=== PATIENT | male | born 1955 | race Hispanic/Latino ===

== ENCOUNTER 2017-05-11 13:05 | Emergency (ER) | payer OTHER ==
[2017-05-11 13:05] VITALS: BMI 35.4
--- NOTE | 2017-05-11 13:57 | ED PDOC ---
Arrival/HPI - General Chief Complaint: Male Genitourinary Time Seen by Provider: 05/11/17 13:38 Historian: Patient - History of Present Illness Narrative History of Present Illness (Text): 05/11/17 13:54 A 61 year old male presents to the emergency department with 1 day duration left flank pain radiating to the left groin. The patient describes the pain as pressure and notes that his urine has been darker than usual. He denies any relieving or exacerbating factors, midline tenderness, fevers, chills, headache , dizziness, chest pain, shortness of breath, dyspnea on exertion, cough, nausea , vomiting, diarrhea, neck pain, urinary/bowel changes, or any other complaint. Time/Duration: Other (1 Day) Symptom Onset: Sudden Symptom Course: Unchanged Activities at Onset: Rest, Light Context: Home Past Medical History - Provider Review Nursing Documentation Reviewed: Yes - Infectious Disease Hx of Infectious Diseases: None - Cardiac Hx Cardiac Disorders: Yes Hx MD: Yes Hx Hypertension: Yes - Pulmonary Hx Respiratory Disorders: No - Neurological Hx Neurological Disorder: No Hx Paralysis: No - HEENT Hx HEENT Disorder: Yes Other/Comment: glasses - Renal Hx Renal Disorder: Yes Hx Kidney Stones: Yes - Endocrine/Metabolic Hx Endocrine Disorders: Yes Hx Diabetes Mellitus Type 2: Yes - Hematological/Oncological Hx Blood Transfusions: No Hx Blood Transfusion Reaction: No - Integumentary Hx Dermatological Disorder: No - Musculoskeletal/Rheumatological Hx Musculoskeletal Disorders: Yes Hx Arthritis: Yes - Gastrointestinal Hx Gastrointestinal Disorders: No - Genitourinary/Gynecological Hx Genitourinary Disorders: No - Psychiatric Hx Psychophysiologic Disorder: No Hx Emotional Abuse: No Hx Physical Abuse: No Hx Substance Use: No - Surgical History Hx Cardiac Catheterization: Yes (x1 stent) Hx Coronary Stent: Yes Hx Thyroidectomy: Yes - Anesthesia Hx Anesthesia: Yes Hx Anesthesia Reactions: No Hx Malignant Hyperthermia: No - Suicidal Assessment Feels Threatened In Home Enviroment: No Family/Social History - Physician Review Nursing Documentation Reviewed: Yes Family/Social History: No Known Family HX Smoking Status: Never Smoked Hx Alcohol Use: Yes (OCCASSIONAL) Frequency of alcohol use: Socially Hx Substance Use: No Allergies/Home Meds Allergies/Adverse Reactions: Allergies Penicillins Allergy (Mild, Verified 05/11/17 13:09) RASH Home Medications: Home Meds Medication Instructions Recorded Confirmed Aspirin [Aspir 81] 81 mg PO DAILY 01/24/12 05/11/17 Clopidogrel [Plavix] 75 mg PO DAILY 01/24/12 05/11/17 Fenofibrate [Tricor] 145 mg PO DAILY 01/24/12 05/11/17 Metoprolol Tartrate [Lopressor] 12.5 mg PO BID 01/24/12 05/11/17 Rosuvastatin Calcium [Crestor] 20 mg PO DAILY 01/24/12 05/11/17 Cholecalciferol (Vitamin D3) 2,000 unit PO DAILY 05/09/17 05/11/17 [Vitamin D3] Glyburide/Metformin HCl 1 tab PO BID 05/09/17 05/11/17 [Glyburide-Metformin 2.5-500 mg] Olmesartan Medoxomil [Benicar] 20 mg PO DAILY 05/09/17 05/11/17 MetFORMIN [glucoPHAGE] 500 mg PO TID 05/11/17 05/11/17 Review of Systems - Physician Review All systems were reviewed & negative as marked: Yes Physical Exam - Physical Exam Narrative Physical Exam (Text): - Review of Systems Constitutional: Normal. absent: Fatigue, Weight Change, Fevers Eyes: Normal ENT: denies sore throat, denies tristhmus Respiratory: Normal. absent: SOB, Cough, Sputum Cardiovascular: absent: Chest Pain, Palpitations, Syncope Gastrointestinal: (+) LLQ Abdominal Pain. absent: Diarrhea, Nausea, Vomiting Genitourinary: Normal. absent: Dysuria, Frequency, Hematuria, vaginal bleeding Musculoskeletal: (+) Left flank pain. absent: Arthralgias, Neck Pain Skin: no rashes, no erythema Neurological: absent: Focal Weakness Endocrine: Normal Hemo/Lymphatic: Normal Psychiatric: No suicidal or homicidal ideations Physical exam Patient appears age appropriate in no distress, speaking full sentences without difficulty - Systems Exam Head: Present: Atraumatic, Normocephalic Pupils: Present: PERRL Extroacular Muscles: Present: EOMI Conjunctiva: Present: Normal Mouth: Present: Moist Mucous Membranes Neck: Present: Normal Range of Motion. No: MIDLINE TENDERNESS, Paraspinal Tenderness Respiratory/Chest: Present: Clear to Auscultation, Good Air Exchange. No: Respiratory Distress, Accessory Muscle Use, Tachypneic Cardiovascular: Present: Regular Rate and Rhythm, Normal S1, S2, Peripheal Pulses Present. No: Murmurs Abdomen: Present: Left lower quadrant tenderness. Normal Bowel Sounds. No: Distention, Peritoneal Signs, Rebound, Guarding Back: Present: Left flank tenderness. No: Midline Tenderness, Paraspinal Tenderness Upper Extremity: Present: Normal Inspection. No: Cyanosis, Edema Lower Extremity: Present: Normal Inspection. No: Edema Neurological: Present: GCS=15, Speech Normal, cranial nerves II through XII fully intact with no cerebellar abnormality, neurosensory fully intact. No focal neurological deficits. Skin: Present: Warm, Dry, Normal Color. No: Rashes Lymphatic: Present: OX3, NI, NC Psychiatric: Present: Alert, Oriented x 3, Normal Insight, Normal Concentration Vital Signs Reviewed: Yes Vital Signs Temp Pulse Resp BP Pulse Ox 05/11/17 15:20 97.8 F 70 17 172/73 H 98 05/11/17 13:14 97.8 F 55 L 18 208/81 H 100 Temperature: Afebrile Blood Pressure: Hypertensive Pulse: Tachycardic Respiratory Rate: Normal Appearance: Positive for: Well-Appearing, Non-Toxic Pain Distress: None Mental Status: Positive for: Alert and Oriented X 3 Medical Decision Making ED Course and Treatment: 05/11/17 14:00 Impression: A 61 year old male presents with 1 day duration left flank pain radiating to his left groin. On exam, LLQ and Left flank tenderness. Differential Diagnosis included but are not limited to: Renal Colic vs. Diverticular Disease vs. Musculoskeletal Pain vs. Non-Specific Abdominal Pain. Plan: -- Abdomen/Pelvis CT -- Urinalysis -- Labs -- Flomax and Toradol -- Reassess and disposition Progress Notes: 05/11/17 14:03: No fluids were administered to patient due to elevated blood pressure. 05/11/17 15:28 BP lower, HR increased will order fluids pt states he feels much better 05/11/17 16:11 CT IMPRESSION: 1. Moderate left obstructive uropathy resulting from a 5 mm stone in the left proximal ureter. 2. Small nonobstructing stones in the left kidney. Punctate nonobstructing stone in the upper pole of the right kidney. 3. Mild enlargement of the prostate gland. Please correlate with PSA levels. 4. Fatty infiltration of the liver. 5. Constipation. No evidence of bowel obstruction. patient is in no distress and states his pain fully resolved no nausea or vomiting denies any complaints pt states he feels comfortable being dc'd at this time dw Dr. Carrie Cerda in detail, agrees with dc home with outpatient f/u tomorrow pt instructed to f/u with Dr. Cerda tmr and he was given Dr. Cerda's cell phone number to call for f/u pt also instructed to return to the ER right away for new or worsening symptoms or if he cannot f/u as instructed Pt states he understands to return to the ER right away for new or worsening symptoms or for inability to f/u with PMD or specialist as instructed. Patient states that he fully agrees with and understands discharge instructions. States that she agrees with the plan and disposition. Verbalized and repeated discharge instructions and plan. I have given the patient opportunity to ask any additional questions. - Lab Interpretations Lab Results: 05/11/17 14:29 05/11/17 14: Lab Results 05/11/17 14:29: Sodium 144, Potassium 4.5, Chloride 105, Carbon Dioxide 27, Anion Gap 17, BUN 17, Creatinine 1.1, Est GFR ( Amer) > 60, Est GFR (Non- Af Amer) > 60, Random Glucose 235 H, Calcium 9.7, Total Bilirubin 0.6, AST 64 H , ALT 66 H, Alkaline Phosphatase 50, Total Protein 7.0, Albumin 4.3, Globulin 2.6, Albumin/Globulin Ratio 1.7, Lipase 183 05/11/17 14:29: Urine Color Yellow, Urine Appearance Clear, Urine pH 6.0, Ur Specific [place] >= 1.030, Urine Protein 30 H, Urine Glucose (UA) 250 H, Urine Ketones Negative, Urine Blood Large H, Urine Nitrate Negative, Urine Bilirubin Negative, Urine Urobilinogen 0.2, Ur Leukocyte Esterase Negative, Urine RBC Tntc , Urine WBC 0 - 2, Ur Epithelial Cells 0 - 2, Urine Bacteria Small 05/11/17 14:29: PT 11.4, INR 1.06, APTT 22.4 L 05/11/17 14:29: WBC 7.4 D, RBC 4.38, Hgb 13.2 L, Hct 38.7 L, MCV 88.4, MCH 30.1 , MCHC 34.1, RDW 12.9, Plt Count 209, MPV 10.8, Gran % 80.6 H, Lymph % (Auto) 13.7 L, [place] % (Auto) 4.3, Eos % (Auto) 1.3 L, Baso % (Auto) 0.1, Gran # 5.97, Lymph # 1.0 L, [place] # 0.3, Eos # 0.1, Baso # 0.01 I have reviewed the lab results: Yes - RAD Interpretation Radiology Orders: 05/11/17 13:47 ABD & PELVIS W/O PO OR IV CONT [CT] Stat - Medication Orders Current Medication Orders: Sodium Chloride (Sodium Chloride 0.9%) 1,000 mls @ 1,000 mls/hr IV .Q1H STA Stop: 05/11/17 16:27 Discontinued Medications Ketorolac Tromethamine (Toradol) 30 mg IVP STAT STA Stop: 05/11/17 13:47 Last Admin: 05/11/17 14:27 Dose: 30 mg MAR Pain Assessment Document 05/11/17 14:27 IT (Rec: 05/11/17 14:27 IT [id number]) Pain Reassessment Is this a pain reassessment? No Sleep Is patient sleeping during reassessment? No Presence of Pain Presence of Pain Yes Pain Scale Used Pain Scale Used Numeric Location Left, Right or Bilateral Right Upper or Lower Lower Pain Location Body Site Groin Description Description Intermittent Intensity of Pain at present 8 IVP Administration Document 05/11/17 14:27 IT (Rec: 05/11/17 14:27 IT [id number]) Charges for Administration # of IVP Administrations 1 Tamsulosin HCl (Flomax) 0.4 mg PO STAT STA Stop: 05/11/17 13:48 Last Admin: 05/11/17 14:07 Dose: 0.4 mg - Scribe Statement The provider has reviewed the documentation as recorded by the Angy Dillon Provider Scribe Attestation: All medical record entries made by the Scribe were at my direction and personally dictated by me. I have reviewed the chart and agree that the record accurately reflects my personal performance of the history, physical exam, medical decision making, and the department course for this patient. I have also personally directed, reviewed, and agree with the discharge instructions and disposition. Disposition/Present on Arrival - Present on Arrival Any Indicators Present on Arrival: No History of DVT/PE: No History of Uncontrolled Diabetes: No Urinary Catheter: No History of Decub. Ulcer: No History Surgical Site Infection Following: None - Disposition Have Diagnosis and Disposition been Completed?: Yes Diagnosis: Ureteral colic Disposition: HOME/ ROUTINE Disposition Time: 16:19 Patient Plan: Discharge Condition: GOOD Discharge Instructions (ExitCare): Renal Colic (ED) Additional Instructions: PLEASE CALL DR. MEGA CERDA AND MAKE AN APPOINTMENT [phone] PLEASE RETURN TO THE EMERGENCY DEPARTMENT FOR NEW OR WORSENING SYMPTOMS. RETURN RIGHT AWAY IF YOU CANNOT FOLLOW UP WITH DR. CERDA WITHIN 24 HOURS RETURN TO THE ER RIGHT AWAY FOR PAIN, NAUSEA, VOMITING, BURNING ON URINATION, OR ANY OTHER CONCERNS OR COMPLAINTS. Prescriptions: Ketorolac Tromethamine [Toradol] 10 mg PO Q6 PRN #14 tab PRN Reason: Pain, Severe (8-10) Tamsulosin [Flomax] 0.4 mg PO DAILY #4 cap Referrals: Mega Cerda MD [Staff Provider] - Follow up with primary Forms: [employer] (Kyrgyz), WORK NOTE
[2017-05-11 14:36] LABS: URINE BILIRUBIN NEGATIVE (NEGATIVE); URINE BLOOD LARGE (NEGATIVE); URINE GLUCOSE (UA) 250 mg/dL (NEGATIVE); URINE KETONE NEGATIVE (NEGATIVE); URINE LEUKOCYTE ESTERASE NEGATIVE Leu/uL (NEGATIVE); URINE PROTEIN 30 mg/dL (<30 mg/dL); URINE UROBILINOGEN 0.2 E.U./dL (<1 E.U./dL)
[2017-05-11 14:37] LABS: BASO # 0.01 K/mm3 (0.0-2.0); BASO % 0.1 % (0.0-3.0); EOS # 0.1 (0.0-0.7); EOS % 1.3 % (1.5-5.0); GRAN # 5.97 (1.4-6.5); GRAN % 80.6 % (50.0-68.0); HEMATOCRIT 38.7 % (42.0-52.0); LYMPH % 13.7 % (22.0-35.0); MEAN CELL VOLUME 88.4 fl (80.0-105.0); MEAN CORPUSCULAR HEMOGLOBIN 30.1 pg (25.0-35.0); MEAN CORPUSCULAR HGB CONC 34.1 g/dl (31.0-37.0); MEAN PLATELET VOLUME 10.8 fl (7.0-11.0); MONO # 0.3 (0.1-0.6); MONO % 4.3 % (1.0-6.0); RED CELL DISTRIBUTION WIDTH 12.9 % (11.5-14.5); WHITE BLOOD COUNT 7.4 10^3/ul (4.5-11.0)
[2017-05-11 14:38] LABS: URINE APPEARANCE CLEAR (CLEAR); URINE COLOR YELLOW (YELLOW)
[2017-05-11 14:44] LABS: INR 1.06 (0.93-1.08); PARTIAL THROMBOPLASTIN TIME 22.4 Seconds (23.7-30.8)
[2017-05-11 14:52] LABS: URINE BACTERIA SMALL (NEG); URINE EPITHELIAL CELLS 0 - 2 /hpf (0-5); URINE RBC TNTC /hpf (0-2); URINE WBC 0 - 2 /hpf (0-6)
[2017-05-11 15:01] LABS: ALB/GLOB RATIO 1.7 (1.1-1.8); ALKALINE PHOSPHATASE 50 U/L (38-126); ALT/SGPT 66 U/L (7-56); AST/SGOT 64 U/L (17-59); BILIRUBIN,TOTAL 0.6 mg/dL (0.2-1.3); BLOOD UREA NITROGEN 17 mg/dL (7-21); CALCIUM 9.7 mg/dL (8.4-10.5); CARBON DIOXIDE 27 mmol/L (21-33); CHLORIDE 105 mmol/L (98-107); GFR AFRICAN-AMERICAN > 60; GLUCOSE,RANDOM 235 mg/dL (70-110); LIPASE 183 U/L (23-300); POTASSIUM 4.5 mmol/L (3.6-5.0); SODIUM 144 mmol/L (132-148)
[2017-05-11] MEDS ORDERED: Sodium Chloride 0.9% 1,000 ML IV STA (15:28)
--- NOTE | 2017-05-11 15:36 | CT ---
PROCEDURE: CT Abdomen and Pelvis without intravenous contrast HISTORY: Renal colic COMPARISON: None. TECHNIQUE: CT scan of the abdomen and pelvis was performed without administration of intravenous contrast. Oral contrast was not administered. Coronal and sagittal reformatted images were obtained. Radiation dose: Total exam DLP = 1106.87 mGy-cm. This CT exam was performed using one or more of the following dose reduction techniques: Automated exposure control, adjustment of the mA and/or kV according to patient size, and/or use of iterative reconstruction technique. FINDINGS: LOWER THORAX: The lung bases are clear. There is a 5 mm nodule in the lingula. LIVER: There is diffuse fatty infiltration in the liver. No gross lesion or ductal dilatation. GALLBLADDER AND BILE DUCTS: Gallbladder is contracted. PANCREAS: The pancreas is normal in size without calcifications or ductal dilatation. SPLEEN: The spleen is normal in size. ADRENALS: Both adrenal glands are normal in size without discrete nodule. KIDNEYS AND URETERS: There is no 5 mm obstructing stone in the left proximal ureteral with resultant mild dilatation of the proximal ureteral, mild hydronephrosis, edema and enlargement of the left kidney and significant perinephric inflammatory changes. There are small nonobstructing stones in the left kidney. There is a punctate nonobstructing stone in the upper pole of the right kidney. The right kidney is normal in size without hydronephrosis. VASCULATURE: Unremarkable. No aortic aneurysm. BOWEL: The small bowel loops are normal in caliber. There is moderate amount of stool in the colon. No evidence of bowel obstruction. APPENDIX: Normal appendix. PERITONEUM: No free fluid. No free air. LYMPH NODES: No enlarged lymph nodes. BLADDER: Unremarkable. REPRODUCTIVE: There is mild enlargement of the prostate gland with central coarse calcifications. BONES: No acute fracture. Multilevel degenerative disc disease. OTHER FINDINGS: None. IMPRESSION: 1. Moderate left obstructive uropathy resulting from a 5 mm stone in the left proximal ureter. 2. Small nonobstructing stones in the left kidney. Punctate nonobstructing stone in the upper pole of the right kidney. 3. Mild enlargement of the prostate gland. Please correlate with PSA levels. 4. Fatty infiltration of the liver. 5. Constipation. No evidence of bowel obstruction.
[2017-05-11 16:45] VITALS: BP 126/82; PULSE 75; RESP 20; TEMP 98; O2SAT 100
== END 2017-05-11 16:46 | disposition home or self-care (01) ==
LOC: ED 13:05
DX: N20.1 Calculus of ureter (principal); I10 Essential (primary) hypertension; E11.9 Type 2 diabetes mellitus without complications
CPT/HCPCS: 74176; 80053; 81001; 83690; 85025; 85610; 85730; 96361; 96374; 99284; J1885; J7040

== ENCOUNTER 2018-09-29 08:15 | Outpatient (CLI) | payer OTHER | END 2018-09-29 08:16 | disposition home or self-care (01) | LOC: LAB 08:15 | DX: E11.65 Type 2 diabetes mellitus with hyperglycemia (principal); I25.10 Atherosclerotic heart disease of native coronary artery without angina pectoris; E78.49 Other hyperlipidemia; N40.0 Benign prostatic hyperplasia without lower urinary tract symptoms ==